=== PATIENT | female | born 1985 | race Caucasian/White ===

== ENCOUNTER 2020-07-16 00:54 | Emergency (ER) | payer OTHER ==
[~2020-07-16] VITALS: Ht 157.5 cm; Wt 67.1 kg
[2020-07-16 01:14] LABS: URINE BILIRUBIN NEGATIVE (Negative); URINE BLOOD 3+ (Negative); URINE CLARITY CLEAR; URINE COLOR YELLOW; URINE GLUCOSE-RANDOM NEGATIVE (Negative); URINE KETONES TRACE (Negative); URINE LEUKOCYTES-REFLEX NEGATIVE (Negative); URINE NITRITE-REFLEX NEGATIVE (Negative); URINE PROTEIN NEGATIVE (Negative); URINE UROBILINOGEN 0.2 E.U./dl (0.2-1.0)
[2020-07-16 01:40] LABS: ABSOLUTE BASOPHILS 0.1 thou/uL (0.0-0.2); ABSOLUTE EOSINOPHILS 0.1 thou/uL (0.0-0.7); ABSOLUTE MONOCYTES 1.5 thou/uL (0.0-1.2); ABSOLUTE NEUTROPHILS 12.5 thou/uL (1.6-8.1); BASOPHILS 0.8 %; EOSINOPHILS 0.8 %; HEMATOCRIT 36.8 % (37.0-47.0); HEMOGLOBIN 12.6 gm/dL (12.0-15.0); LYMPHOCYTES 12.3 %; MCH 32.4 pg (26.0-34.0); MCHC 34.2 g/dL (28.0-37.0); MCV 94.8 fL (80.0-100.0); MONOCYTES 9.2 %; MPV 7.1 fl. (7.2-11.1); NUCLEATED RBCS 0 /100WBC; PLATELET COUNT* 439 thou/uL (150-400); POLYS 76.9 %; RBC 3.88 mil/uL (4.20-5.00); RDW-CV 11.7 % (10.5-14.5); WBC 16.3 thou/uL (4.0-11.0)
[2020-07-16 01:44] LABS: CASTS None Seen /LPF (None Seen); SQUAMOUS >10 Many /LPF (0-3)
[2020-07-16 01:45] LABS: CRYSTALS None Seen /LPF (None Seen); URINE RBC >20 Many /HPF (0-2); URINE WBC-REFLEX 0-5 Rare /HPF (0-5)
[2020-07-16 01:46] LABS: CALCIUM 8.1 mg/dL (8.5-10.1); CREATININE 0.7 mg/dL (0.6-1.3); POTASSIUM 3.6 mmol/L (3.5-5.1)
[2020-07-16] MEDS ORDERED: ZOFRAN ODT4 MG PO (02:38)
[2020-07-16 02:46] LABS: AMP/METHAMP Negative (Negative); BARBITURATES Negative (Negative); BENZODIAZEPINES Negative (Negative); COCAINE Negative (Negative); METHADONE Negative (Negative); OPIATES POSITIVE (Negative); PCP Negative (Negative); THC Negative (Negative)
[2020-07-16 02:50] VITALS: BP 105/64
== END 2020-07-16 02:50 | disposition home or self-care (01) ==
LOC: M.ERS 00:54
PROVIDERS: Emergency Medicine
DX: N20.0 Calculus of kidney (principal); Z90.710 Acquired absence of both cervix and uterus; Z88.8 Allergy status to other drugs, medicaments and biological substances; Z91.040 Latex allergy status

== ENCOUNTER 2020-10-18 01:13 | Emergency (ER) | payer OTHER ==
[~2020-10-18] VITALS: Ht 157.5 cm; Wt 67.1 kg
[~2020-10-18 01:13] MED LIST: IBUPROFEN 800800 M1 PO; ZOFRAN ODT4 MG PO
[2020-10-18 01:55] LABS: URINE BILIRUBIN NEGATIVE (Negative); URINE BLOOD 3+ (Negative); URINE CLARITY SL CLOUDY; URINE COLOR YELLOW; URINE GLUCOSE-RANDOM NEGATIVE (Negative); URINE KETONES NEGATIVE (Negative); URINE PROTEIN 1+ (Negative); URINE UROBILINOGEN 0.2 E.U./dl (0.2-1.0)
[2020-10-18 02:01] LABS: URINE LEUKOCYTES-REFLEX 3+ (Negative); URINE NITRITE-REFLEX POSITIVE (Negative)
[2020-10-18 02:02] LABS: AMP/METHAMP Negative (Negative); BARBITURATES Negative (Negative); BENZODIAZEPINES Negative (Negative); COCAINE Negative (Negative); METHADONE Negative (Negative); OPIATES Negative (Negative); PCP Negative (Negative); THC Negative (Negative)
[2020-10-18 02:03] LABS: HEMATOCRIT 35.6 % (37.0-47.0); MCH 31.5 pg (26.0-34.0); MCHC 33.7 g/dL (28.0-37.0); MCV 93.4 fL (80.0-100.0); MPV 7.3 fl. (7.2-11.1); NUCLEATED RBCS 0 /100WBC; PLATELET COUNT* 389 thou/uL (150-400); RBC 3.81 mil/uL (4.20-5.00); RDW-CV 12.4 % (10.5-14.5); WBC 16.3 thou/uL (4.0-11.0)
[2020-10-18 02:12] LABS: CALCIUM 8.4 mg/dL (8.5-10.1); CREATININE 0.8 mg/dL (0.6-1.3)
[2020-10-18 02:17] LABS: ALBUMIN 3.5 g/dL (3.4-5.0); TOTAL BILIRUBIN 0.7 mg/dL (<0.1-1.0); TOTAL PROTEIN 6.7 g/dL (6.4-8.2)
[2020-10-18 02:29] LABS: CASTS None Seen /LPF (None Seen); SQUAMOUS 4-10 Moderate /LPF (0-3)
[2020-10-18 02:30] LABS: URINE WBC-REFLEX >25 Many /HPF (0-5)
[2020-10-18 02:31] LABS: CRYSTALS None Seen /LPF (None Seen)
[2020-10-18 02:43] LABS: ABSOLUTE LYMPHOCYTES 0.8 thou/uL (0.8-5.3); ABSOLUTE NEUTROPHILS 14.5 thou/uL (1.6-8.1)
[2020-10-18 02:45] LABS: PLATELET ESTIMATE ADEQUATE
[2020-10-18] MEDS ORDERED: ZOFRAN ODT4 MG PO (04:15)
[2020-10-18] MEDS ORDERED: HYDROCODON-ACE1 EAC8 PO (04:15)
[2020-10-18] MEDS ORDERED: BACTRIM DS TAB1 EACH PO (04:15)
[2020-10-18 04:38] VITALS: BP 103/55
== END 2020-10-18 04:40 | disposition home or self-care (01) ==
LOC: M.ERS 01:13
PROVIDERS: Emergency Medicine
DX: N39.0 Urinary tract infection, site not specified (principal); Z87.442 Personal history of urinary calculi; Z90.711 Acquired absence of uterus with remaining cervical stump; Z87.42 Personal history of other diseases of the female genital tract; Z88.8 Allergy status to other drugs, medicaments and biological substances; Z91.040 Latex allergy status

== ENCOUNTER 2020-11-16 10:31 | Emergency (ER) | payer OTHER ==
[~2020-11-16] VITALS: Ht 165.1 cm; Wt 63.5 kg
[~2020-11-16 10:31] MED LIST changes: +BACTRIM DS TAB1 EACH PO; +HYDROCODON-ACE1 EAC8 PO
[2020-11-16] MEDS ORDERED: IBUPROFEN 800800 M1 PO (10:43)
[2020-11-16 10:55] LABS: URINE BILIRUBIN NEGATIVE (Negative); URINE BLOOD 3+ (Negative); URINE CLARITY SL CLOUDY; URINE COLOR YELLOW; URINE GLUCOSE-RANDOM NEGATIVE (Negative); URINE KETONES NEGATIVE (Negative); URINE LEUKOCYTES-REFLEX NEGATIVE (Negative); URINE NITRITE-REFLEX NEGATIVE (Negative); URINE PROTEIN NEGATIVE (Negative); URINE UROBILINOGEN 0.2 E.U./dl (0.2-1.0)
[2020-11-16 10:58] LABS: BACTERIA-REFLEX 1-9 Few /HPF (None Seen); CASTS None Seen /LPF (None Seen); CRYSTALS None Seen /LPF (None Seen); MUCUS 0-3 Light strn/LPF (None Seen); SQUAMOUS 4-10 Moderate /LPF (0-3); URINE RBC >20 Many /HPF (0-2); URINE WBC-REFLEX 0-5 Rare /HPF (0-5)
[2020-11-16 11:07] LABS: ABSOLUTE BASOPHILS 0.1 thou/uL (0.0-0.2); ABSOLUTE EOSINOPHILS 0.3 thou/uL (0.0-0.7); ABSOLUTE LYMPHOCYTES 2.2 thou/uL (0.8-5.3); ABSOLUTE MONOCYTES 0.6 thou/uL (0.0-1.2); ABSOLUTE NEUTROPHILS 7.3 thou/uL (1.6-8.1); BASOPHILS 1.3 %; HEMATOCRIT 41.6 % (37.0-47.0); HEMOGLOBIN 13.9 gm/dL (12.0-15.0); LYMPHOCYTES 20.8 %; MCH 31.1 pg (26.0-34.0); MCHC 33.4 g/dL (28.0-37.0); MCV 93.2 fL (80.0-100.0); MONOCYTES 5.9 %; MPV 7.1 fl. (7.2-11.1); NUCLEATED RBCS 0 /100WBC; PLATELET COUNT* 453 thou/uL (150-400); RBC 4.46 mil/uL (4.20-5.00); RDW-CV 13.1 % (10.5-14.5); WBC 10.6 thou/uL (4.0-11.0)
[2020-11-16 11:12] LABS: CALCIUM 8.7 mg/dL (8.5-10.1); CREATININE 0.7 mg/dL (0.6-1.3); POTASSIUM 3.7 mmol/L (3.5-5.1)
[2020-11-16 11:23] LABS: ALBUMIN 3.9 g/dL (3.4-5.0); TOTAL BILIRUBIN 0.5 mg/dL (<0.1-1.0); TOTAL PROTEIN 7.5 g/dL (6.4-8.2)
[2020-11-16] MEDS ORDERED: FLOMAX0.4 MG PO (13:02)
[2020-11-16] MEDS ORDERED: NORCO5 PO ×3 (13:02→16:20)
[2020-11-16] MEDS ORDERED: ONDANSETRON ODT4 MG PO (13:02)
[2020-11-16 13:47] VITALS: BP 143/75
== END 2020-11-16 13:48 | disposition home or self-care (01) ==
LOC: M.ERS 10:31
PROVIDERS: Physician Assistant
DX: R31.0 Gross hematuria (principal); R11.2 Nausea with vomiting, unspecified; R10.32 Left lower quadrant pain; G43.909 Migraine, unspecified, not intractable, without status migrainosus; J45.909 Unspecified asthma, uncomplicated; Z87.442 Personal history of urinary calculi; Z88.8 Allergy status to other drugs, medicaments and biological substances; Z91.030 Bee allergy status; Z88.6 Allergy status to analgesic agent; Z90.710 Acquired absence of both cervix and uterus

== ENCOUNTER 2021-02-13 17:16 | Emergency (ER) | payer OTHER ==
[~2021-02-13] VITALS: Ht 157.5 cm; Wt 63.5 kg
[~2021-02-13 17:16] MED LIST changes: +FLOMAX0.4 MG PO; +NORCO5 PO; +ONDANSETRON ODT4 MG PO
[2021-02-13 17:40] LABS: URINE BILIRUBIN NEGATIVE (Negative); URINE BLOOD 3+ (Negative); URINE COLOR STRAW; URINE GLUCOSE-RANDOM NEGATIVE (Negative); URINE KETONES NEGATIVE (Negative); URINE LEUKOCYTES-REFLEX TRACE (Negative); URINE NITRITE-REFLEX NEGATIVE (Negative); URINE PROTEIN NEGATIVE (Negative); URINE UROBILINOGEN 0.2 E.U./dl (0.2-1.0)
[2021-02-13 17:41] LABS: URINE CLARITY SL HAZY
[2021-02-13 17:55] LABS: CASTS None Seen /LPF (None Seen); CRYSTALS None Seen /LPF (None Seen); MUCUS None Seen strn/LPF (None Seen); SQUAMOUS >10 Many /LPF (0-3); URINE RBC >20 Many /HPF (0-2)
[2021-02-13 17:56] LABS: BACTERIA-REFLEX None Seen /HPF (None Seen); URINE WBC-REFLEX 0-5 Rare /HPF (0-5)
[2021-02-13 19:12] LABS: ABSOLUTE BASOPHILS 0.1 thou/uL (0.0-0.2); ABSOLUTE EOSINOPHILS 0.2 thou/uL (0.0-0.7); ABSOLUTE LYMPHOCYTES 2.3 thou/uL (0.8-5.3); ABSOLUTE MONOCYTES 0.7 thou/uL (0.0-1.2); ABSOLUTE NEUTROPHILS 6.5 thou/uL (1.6-8.1); BASOPHILS 0.7 %; EOSINOPHILS 1.7 %; HEMATOCRIT 36.7 % (37.0-47.0); HEMOGLOBIN 12.5 gm/dL (12.0-15.0); LYMPHOCYTES 23.2 %; MCH 30.8 pg (26.0-34.0); MCHC 34.1 g/dL (28.0-37.0); MCV 90.2 fL (80.0-100.0); MONOCYTES 7.4 %; MPV 7.2 fl. (7.2-11.1); NUCLEATED RBCS 0 /100WBC; PLATELET COUNT* 527 thou/uL (150-400); RBC 4.07 mil/uL (4.20-5.00); RDW-CV 13.3 % (10.5-14.5); WBC 9.7 thou/uL (4.0-11.0)
[2021-02-13 19:21] LABS: CALCIUM 8.7 mg/dL (8.5-10.1); CREATININE 0.8 mg/dL (0.6-1.3); POTASSIUM 4.1 mmol/L (3.5-5.1)
[2021-02-13] MEDS ORDERED: PERCOCET 5-3251 EACH PO (20:11)
[2021-02-13 20:19] VITALS: BP 127/67
== END 2021-02-13 20:20 | disposition home or self-care (01) ==
LOC: M.ERS 17:16
PROVIDERS: Nurse Practitioner Family; Nurse Practitioner Psychiatric/Mental Health
DX: N20.0 Calculus of kidney (principal); R11.2 Nausea with vomiting, unspecified; G43.909 Migraine, unspecified, not intractable, without status migrainosus; J45.909 Unspecified asthma, uncomplicated; Z91.040 Latex allergy status; Z88.6 Allergy status to analgesic agent; Z88.8 Allergy status to other drugs, medicaments and biological substances; Z79.899 Other long term (current) drug therapy; Z87.442 Personal history of urinary calculi

== ENCOUNTER 2021-04-08 19:09 | Emergency (ER) | payer OTHER ==
[~2021-04-08] VITALS: Ht 157.5 cm; Wt 64.4 kg
[~2021-04-08 19:09] MED LIST changes: +PERCOCET 5-3251 EACH PO
[2021-04-08] MEDS ORDERED: ADDERALL 20 MG20 MG PO (19:25)
[2021-04-08 19:31] LABS: URINE BILIRUBIN NEGATIVE (Negative); URINE BLOOD 3+ (Negative); URINE CLARITY SL CLOUDY; URINE COLOR YELLOW; URINE GLUCOSE-RANDOM NEGATIVE (Negative); URINE KETONES TRACE (Negative); URINE LEUKOCYTES-REFLEX NEGATIVE (Negative); URINE NITRITE-REFLEX NEGATIVE (Negative); URINE PROTEIN NEGATIVE (Negative); URINE UROBILINOGEN 0.2 E.U./dl (0.2-1.0)
[2021-04-08 19:34] LABS: SQUAMOUS >10 Many /LPF (0-3); URINE RBC >20 Many /HPF (0-2)
[2021-04-08 19:35] LABS: BACTERIA-REFLEX None Seen /HPF (None Seen); CASTS None Seen /LPF (None Seen); CRYSTALS None Seen /LPF (None Seen); MUCUS 0-3 Light strn/LPF (None Seen); URINE WBC-REFLEX 0-5 Rare /HPF (0-5)
[2021-04-08 19:40] LABS: ABSOLUTE BASOPHILS 0.1 thou/uL (0.0-0.2); ABSOLUTE EOSINOPHILS 0.2 thou/uL (0.0-0.7); ABSOLUTE LYMPHOCYTES 2.4 thou/uL (0.8-5.3); ABSOLUTE NEUTROPHILS 6.6 thou/uL (1.6-8.1); BASOPHILS 0.7 %; HEMATOCRIT 37.2 % (37.0-47.0); HEMOGLOBIN 12.6 gm/dL (12.0-15.0); LYMPHOCYTES 23.1 %; MCH 30.7 pg (26.0-34.0); MCHC 33.8 g/dL (28.0-37.0); MCV 90.9 fL (80.0-100.0); MONOCYTES 9.7 %; MPV 6.9 fl. (7.2-11.1); NUCLEATED RBCS 0 /100WBC; PLATELET COUNT* 563 thou/uL (150-400); POLYS 64.5 %; RDW-CV 14.6 % (10.5-14.5); WBC 10.2 thou/uL (4.0-11.0)
[2021-04-08 19:44] LABS: CALCIUM 7.9 mg/dL (8.5-10.1); CREATININE 0.9 mg/dL (0.6-1.3); POTASSIUM 3.6 mmol/L (3.5-5.1)
[2021-04-08] MEDS ORDERED: ENDOCET 5-3251 EACH PO (21:48)
[2021-04-08] MEDS ORDERED: ZOFRAN ODT4 MG PO (21:48)
[2021-04-08 22:05] VITALS: BP 154/60
== END 2021-04-08 22:06 | disposition home or self-care (01) ==
LOC: M.ERS 19:09
PROVIDERS: Emergency Medicine
DX: N23 Unspecified renal colic (principal); G43.909 Migraine, unspecified, not intractable, without status migrainosus; J45.909 Unspecified asthma, uncomplicated; Z87.442 Personal history of urinary calculi; Z90.710 Acquired absence of both cervix and uterus; Z79.899 Other long term (current) drug therapy; Z79.1 Long term (current) use of non-steroidal anti-inflammatories (NSAID); Z88.5 Allergy status to narcotic agent; Z88.8 Allergy status to other drugs, medicaments and biological substances; Z88.6 Allergy status to analgesic agent; Z91.040 Latex allergy status